=== PATIENT | male | born 1980 | race Caucasian/White ===

== ENCOUNTER 2018-02-22 13:43 | Emergency (ER) | payer BC ==
[2018-02-22] MEDS ORDERED: Ciprofloxacin 0.3% Ophth Soln 2.5 ML Bottle EYELF ONE (14:34)
[2018-02-22] MEDS ORDERED: Ketorolac 0.5% Ophth Soln 5 ML Bottle EYELF ONE (14:34)
--- NOTE | 2018-02-22 14:39 | EDM.PDOC ---
ED HPI GENERAL MEDICAL PROBLEM - General Chief Complaint: Eye Problems Stated Complaint: FT IN LEFT EYE Time Seen by Provider: 02/22/18 14:35 Source of Information: Reports: Patient History Limitations: Reports: No Limitations - History of Present Illness INITIAL COMMENTS - FREE TEXT/NARRATIVE: 37-year-old male presents to the ED with foreign body sensation left eye since yesterday about 1630 hrs. he was getting home from work. 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 He states they were outside working and it was fairly windy. States it seemed to occur when they were cleaning up the job site in getting ready to come home. He did attend [facility] this morning and identified foreign bodies within the eye apparently 3 pieces of unknown material were removed from the fourth piece embedded in the cornea and he was thus sent to the ED. He is to have foreign body sensation with excessive tearing and feeling of pressure up underneath his left eyelid. He reports that his eyelid was not inverted today as part of his initial workup. Patient does not normally wear glasses although he does wear glasses a good portion of the time at work for eye protection .He does not wear contact lenses. Onset: Sudden Onset Date: 02/21/18 Duration: Hour(s): Location: Reports: Face (Left eye foreign body sensation) Quality: Reports: Ache, Burning, Stabbing Severity: Moderate Improves with: Reports: None Worsens with: Reports: Other (Photophobic) Context: Reports: Other (Form body sensation left eye while cleaning up workplace yesterday afternoon about 1630 hrs.). Denies: Activity, Exercise, Lifting, Sick Contact, Trauma Associated Symptoms: Reports: No Other Symptoms Treatments [employer]: Reports: Other (see below) (None.) - Related Data Allergies Allergy/AdvReac Type Severity Reaction Status Date / Time No Known Allergies Allergy Verified 02/22/18 13:58 Home Meds: Home Meds . [Unable to Verify Home Med List] 02/22/18 [History] Past Medical History Endocrine/Metabolic History: Reports: Diabetes, Type II - Past Surgical History HEENT Surgical History: Reports: LASIK Social & Family History - Tobacco Use Smoking Status *Q: Never Smoker Second Hand Smoke Exposure: No - Caffeine Use Caffeine Use: Reports: None - Recreational Drug Use Recreational Drug Use: No - Living Situation & Occupation Living situation: Reports: Occupation: Employed ED ROS GENERAL - Review of Systems Review Of Systems: See Below Constitutional: Reports: No Symptoms HEENT: Reports: Eye Pain (Left eye pain with foreign body sensation since yesterday afternoon at 16:30 hours) Respiratory: Reports: No Symptoms Cardiovascular: Reports: No Symptoms Endocrine: Reports: No Symptoms GI/Abdominal: Reports: No Symptoms : Reports: No Symptoms ED EXAM GENERAL W FULL EYE - Physical Exam Exam: See Below Exam Limited By: No Limitations General Appearance: Alert, WD/WN, Other (Left eye is erythematous and obviously irritated.) Eye Exam: Left Eye: Corneal Abrasion (Patient has a large central corneal abrasion approximate 2.5 mm x 2 mm in size from previous removal of foreign bodies. One foreign body remains deeply embedded on fluorescein staining of the cornea was able to remove this with 25-gauge needle.), Periorbital Changes ( Redness of both upper and lower eyelids from rubbing.), Bilateral Eye: PERRL With Correction: No Eyelids: Left: Normal Appearance, Lid Everted for Exam (No foreign bodies identified) Conjunctiva & Sclera: Bilateral: Normal Appearance Cornea Exam: Left: Corneal Abrasion (Central corneal abrasion measuring 2.5 x 2 mm fairly superficial with one foreign body remaining within the abraded area. This was removed with a 25-gauge needle tip and moistened Q-tip.), Examined with Flourescein Extraocular Movements: Bilateral: Intact Pupils: Normal Accommodation Pupillary Size: Bilateral: 5 mm Pupillary Reaction: Bilateral: Brisk Anterior Chamber: Left: Normal Appearance Posterior Chamber: Left: Normal Funduscopic ED EYE w/ Add Procedure - Eye Procedure Alcaine Drops Administered: Yes Eye FB Removal: Removal w/ Needle Eye Irrigated w/ Saline (ccs): 50 Antibiotic Oinment/Drps Admin: Left Eye Progress: He presented with a fairly large corneal abrasion I believe from other practitioner taking up 3 particles from his eye earlier this morning. The residual foreign body particle was removed with the aid of the tip of a 25- gauge needle. Repeat slitlamp examination reveals it to be completely removed without any rust ring. Course - Vital Signs Last Recorded V/S: Last Vital Signs Temp 36.9 C 02/22/18 14:00 Pulse 78 02/22/18 14:00 Resp 12 02/22/18 14:00 BP 150/83 H 02/22/18 14:00 Pulse Ox 98 02/22/18 14:00 - Orders/Labs/Meds Meds: Medications Discontinued Medications Generic Name Dose Route Start Last Admin Trade Name Arslan PRN Reason Stop Dose Admin Ciprofloxacin 2.5 ml 02/22/18 14:34 02/22/18 14:51 Ciloxan 0.3% Ophth Soln EYELF 02/22/18 14:35 2 drop ONETIME ONE Administration Ketorolac Tromethamine 2.5 ml 02/22/18 14:34 02/22/18 14:50 Acular 0.5% Ophth Soln EYELF 02/22/18 14:35 2 drop ONETIME ONE Administration - Radiology Interpretation Free Text/Narrative:: 37-year-old male presents the ED with persistent foreign body sensation in his left eye since about 1630 hrs. yesterday while he was cleaning up the workplace. Patient did attend the clinic this morning at [facility] in formalin bodies were identified and apparently removed. One foreign body was adherent and could not be removed was thus sent to the ED or [facility] for further examination. No [facility] troponin today. On examination under proparacaine eyedrops and fluorescein eyedrops and slit-lamp I was able to identify a central corneal abrasion 2.5 x 2 mm in size which is fairly superficial. At the 3 o'clock position that was a black foreign body apparent. I was able to remove this without the slit lamp with the tip of a 25-gauge needle and moistened Q- tip. Recheck of the area with the slit lamp shows the foreign body was completely removed with no residual rust ring. And at home will be to double patch his left eye closed for the next 12-24 hours. Ketorolac eyedrops 2 drops every 6 hours as necessary for pain relief Cipro ophthalmic drops 2 drops every 8 hours for the next 2 days to prevent any secondary infection. His eye should heal well over the next 24 hours. He does not have to work the rest of the weekend. Departure - Departure Time of Disposition: 14:42 Disposition: Home, Self-Care 01 Clinical Impression: Foreign body of left cornea Qualifiers: Encounter type: initial encounter Qualified Code(s): T15.02XA - Foreign body in cornea, left eye, initial encounter Corneal abrasion, left Qualifiers: Encounter type: initial encounter Qualified Code(s): S05.02XA - Injury of conjunctiva and corneal abrasion without foreign body, left eye, initial encounter - Discharge Information Instructions: Eye Foreign Body, [id number], Corneal Abrasion, [id number] Referrals: Contreras Khan MD [Primary Care Provider] - Forms: ED Department Discharge Additional Instructions: Evaluation in the emergency him today in regards to foreign body sensation left eye since yesterday afternoon. It appears that something got into the eye and the workplace where you were cleaning up for the day. You're seen earlier at a walk-in clinic and apparently 3 pieces of material were removed from the eye. On my inspection there was no foreign body up underneath the eyelid. There was one residual foreign body at the 3 o'clock position lateral edge of the corneal abrasion which is in the center of your eye. Suspect this corneal abrasion occurred this morning from having the other foreign bodies removed. There are no scratches on the cornea. Body was removed with the aid of a 25-gauge needle and moistened Q-tip. It is been completely removed with no residual rust ring. Treatment at home is double eye patch until tomorrow morning. Use ketorolac eyedrops 2 drops every 6 hours needed for relief of eye pain. May also take oral Motrin 600 mg every 6 hours. Cipro eyedrops 2 drops every 8 hours at least 5 minutes apart from the ketorolac drops to prevent secondary infection until the abrasion heals. The abrasion is fairly superficial and will likely heal well over the next 24 hours. Suspect he will be able to do without your eye patch tomorrow morning. It may be somewhat sensitive to sunlight or bright light for another 24 hours.
== END 2018-02-22 15:10 | disposition home or self-care (01) ==
LOC: JD.ED 13:43
DX: T15.02XA Foreign body in cornea, left eye, initial encounter (principal); E11.9 Type 2 diabetes mellitus without complications
CPT/HCPCS: 65222; 99283; A9270; 65205